=== PATIENT | female | born 1980 | race Caucasian/White ===

== ENCOUNTER 2016-11-13 18:12 | Inpatient (IN) | payer OTHER ==
[~2016-11-13] VITALS: Ht 162.6 cm; Wt 55.5 kg
[2016-11-13 20:45] VITALS: BP 139/79; PULSE 64; RESP 18; TEMP 97.6; O2SAT 100
[2016-11-13] MEDS ORDERED: LORazepam 2 MG/ML VIAL IM PRN (21:00)
[2016-11-13] MEDS ORDERED: REMOVE OLD NICOTINE PATCH T-DERMAL SCH (21:00)
[2016-11-13] MEDS ORDERED: MAGNESIUM HYDROXIDE SUSP 30 ML CUP PO PRN (21:00)
[2016-11-13] MEDS ORDERED: diphenhydrAMINE HCL 50 MG CAP - HS PRN PO (21:00)
[2016-11-13] MEDS ORDERED: ALUMINUM/MAGNESIUM/SIMETH 30 ML CUP PO PRN (21:00)
[2016-11-13] MEDS ORDERED: LORazepam 1 MG TAB PO PRN (21:00)
[2016-11-13] MEDS ORDERED: BENZTROPINE MESYLATE 1 MG TAB PO PRN (21:00)
[2016-11-13] MEDS ORDERED: BENZTROPINE MESYLATE 2 MG/2 ML VIAL IM PRN (21:00)
[2016-11-13] MEDS ORDERED: ACETAMINOPHEN 325 MG TAB PO PRN (21:00)
[2016-11-14 05:19] VITALS: BP 172/92; PULSE 55; RESP 18; TEMP 99; O2SAT 98
[2016-11-14] MEDS ORDERED: NICOTINE 21 MG/24 HR PATCH T-DERMAL SCH (09:00)
[2016-11-14 09:43] LABS: AUTOMATED NEUTROPHIL # 8.6 TH/MM3 (1.8-7.7); BASOPHIL % 0.3 % (0.0-2.0); EOSINOPHIL # 0.2 TH/MM3 (0-0.4); EOSINOPHIL % 1.5 % (0.0-4.0); HEMATOCRIT 43.6 % (35.0-46.0); HEMO FLAGS DIFF FINAL; LYMPH % 20.3 % (9.0-44.0); LYMPHOCYTE # 2.4 TH/MM3 (1.0-4.8); MEAN CELL VOLUME 92.4 FL (80.0-100.0); MEAN CORPUSCULAR HEMOGLOBIN 29.7 PG (27.0-34.0); MEAN CORPUSCULAR HGB CONC 32.1 % (32.0-36.0); NEUT % 71.9 % (16.0-70.0); PLATELET COUNT 238 TH/MM3 (150-450); RED BLOOD COUNT 4.71 MIL/MM3 (4.00-5.30); RED CELL DISTRIBUTION WIDTH 13.1 % (11.6-17.2); WHITE BLOOD COUNT 11.9 TH/MM3 (4.0-11.0)
[2016-11-14] MEDS ORDERED: ACETAMINOPHEN 325 MG TAB PO PRN (10:00)
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
[2016-11-14 10:04] LABS: ALT (GPT) 42 U/L (10-53); ANION GAP 7 MEQ/L (5-15); AST (GOT) 35 U/L (15-37); BICARBONATE 22.9 MEQ/L (21.0-32.0); BLOOD UREA NITROGEN 14 MG/DL (7-18); CHLORIDE 109 MEQ/L (98-107); GLOMERULAR FILTRATION RATE 96 ML/MIN (>89); POTASSIUM 4.2 MEQ/L (3.5-5.1); SODIUM (NA) 139 MEQ/L (136-145)
--- NOTE | 2016-11-14 10:08 | HHI.DS ---
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 Frank Thompson that document reviewed essentially stated that patient agitated and yelling she "has been poison" patient combative and aggressive urine toxicology at that hospital positive for amphetamines patient was admitted repeated times to the intensive care unit for monitoring did receive a small dose of Haldol and Benadryl. Chronic control behavior. Transient ordered here under the Angel act. At the present time patient sitting quietly in her room on 2700 nurse Claire present throughout session. Patient alert oriented calm cooperative stating that she was somewhat upset and was given but she describes as a pain pill by a friend she minimizes his substance use though she acknowledges misuse of multiple drugs including amphetamines marijuana cocaine stating that she had snorted them smoke them. She does acknowledge a legal issues related to false identity. She denies legal issues related to alcohol or drugs. She denies any prior psychiatric contact hospitalization psychotropic medication. She is vague about her living situation though she has 2 children a 17-year-old boy an 11-year-old boy her both in other family custody. Patient minimizes her substance use. Though she continues to denies suicidality homicidality voices or visions and she is well oriented in all 4 spheres. At this time patient does not meet Angel criteria will lift Angel act patient to discharge for self no Rx by me strong recommendation voluntary assessment through [facility] act and absolute sobriety Tobacco Use In Past 30 Days: Refused To Answer Alcohol Use: Monthly or Less Hospital Course Please see above note under brief history. Patient continues to denies suicidality homicidality voices or visions is able contracted to no harm Patient does not meet Angel criteria will lift Angel act patient be discharged to herself, no Rx by me, referred to [facility] act outpatient voluntary substance abuse assessment, referred to NA Results Blood Pressure 172 / 92 Vital Signs Date Time Temp Pulse Resp B/P Pulse Ox O2 Delivery O2 Flow Rate FiO2 11/14/16 05:19 99.0 55 18 172/92 98 Urine toxicology from [facility] positive for amphetamines Summary of Major Lab Results Urine toxicology of [facility] positive for amphetamines Summary of Procedures None done Pending results at discharge: No Medications # of Antipsychotic meds at D/C: 0 Approp Antipsych med options 1 - Minimum of three failed multiple trials of monotherapy. 2 - Documented plan to taper to monotherapy due to previous use of multiple meds OR cross-taper in progress at D/C. 3 - Documentation of augmentation of Clozapine. 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 She is normoactive. Mood is euthymic to somewhat irritable with slight decrease range and intensity of her affect. Speech rate and rhythm within normal limits there are no formal thought disorders except very mild tangentiality. No auditory or visual hallucinations. No delusions. Insight and judgment poor. 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 Chapin Guajardo at Smoking is Dangerous to Your Health. Avoid second hand smoking Chapin Guajardo MD Nov 14, 2016 10:08
[2016-11-14 10:14] LABS: ALKALINE PHOSPHATASE 47 U/L (45-117); HDL CHOLESTEROL 56.3 MG/DL (40.0-60.0); LDL CHOLESTEROL 65 MG/DL (0-99); TOTAL BILIRUBIN ADULT 0.5 MG/DL (0.2-1.0)
[2016-11-14 10:16] LABS: CREATINE KINASE 58 U/L (26-192)
[2016-11-14 10:28] VITALS: BP 142/80; PULSE 77; RESP 17
[2016-11-14 15:33] LABS: HEMOGLOBIN A1a 1.1 %; HEMOGLOBIN A1b 0.8 %; HEMOGLOBIN F 0.8 %; HEMOGLOBIN LA1C 1.9 %; HEMOGLOBIN P3 3.6 %
== END 2016-11-14 12:45 | disposition home or self-care (01) | DRG 897 ==
LOC: H270 20:30
PROVIDERS: ADMIT Psychiatry & Neurology Psychiatry; ATTEND Psychiatry & Neurology Psychiatry
DX: F15.150 Other stimulant abuse with stimulant-induced psychotic disorder with delusions (principal)
CPT/HCPCS: 80053; 80061; 82550; 83036; 84443; 85025